=== PATIENT | male | born 1975 | race Caucasian/White ===

== ENCOUNTER 2018-01-15 01:40 | Inpatient (IN) | payer OTHER ==
[~2018-01-15] VITALS: Ht 177.8 cm; Wt 98.0 kg
--- NOTE | 2018-01-15 01:47 | NUR ---
to bed 9 [facility] paramedics c/o nonradiating midsternal chest pain x2 hrs. pt aaox4 no acute distress noted, resp even and unlabored. place pt on cardiac monitoring, continuous pox. er md at bedside to eval pt with orders received. will carry out orders. sl 20g to R hand chief construction inspector. family members at bedside.
--- NOTE | 2018-01-15 01:53 | NUR ---
blood drawn by community affairs manager.
[2018-01-15] MEDS ORDERED: ASPIRIN 325 MG TABLET ONE (02:00)
[2018-01-15] MEDS ORDERED: MORPHINE SULFATE INJ 2 MG/ML DISP.SYRIN IV ONE ×2 (02:00→02:30)
[2018-01-15] MEDS ORDERED: ASPIRIN 325 MG TABLET PO ONE (02:00)
[2018-01-15] MEDS ORDERED: MORPHINE SULFATE INJ 4 MG/ML DISP.SYRIN ONE ×2 (02:00→02:31)
--- NOTE | 2018-01-15 02:03 | NUR ---
pt medicated by rn per er md order.
[2018-01-15 02:04] LABS: BASOPHILS # (AUTO) 0.1 /CMM (0.0-0.2); BASOPHILS % (AUTO) 0.4 % (0.0-2.0); EOSINOPHILS % (AUTO) 2.7 % (0.0-6.0); HEMATOCRIT 44 % (39-51); HEMOGLOBIN 15.1 g/dL (13.5-17.5); LYMPHOCYTES # (AUTO) 2.9 /CMM (0.8-4.8); LYMPHOCYTES % (AUTO) 20.2 % (20.0-44.0); MEAN CORPUSCULAR HGB CONC 34 g/dl (31.0-36.0); MEAN CORPUSCULAR VOLUME 85 fL (80-96); MONOCYTES # (AUTO) 0.9 /CMM (0.1-1.30); NEUTROPHILS # (AUTO) 10.3 /CMM (1.8-8.9); NEUTROPHILS % (AUTO) 70.7 % (43.0-81.0); PLATELET COUNT (AUTO) 232 /CMM (150-450); RDW COEFFICIENT OF VARIATION 14.5 (11.5-15.0); RED BLOOD CELL COUNT(AUTO) 5.14 MIL/uL (4.5-6.0); WHITE BLOOD COUNT (AUTO) 14.6 K/uL (4.3-11.0)
[2018-01-15 02:16] LABS: CARBON DIOXIDE 23 mmol/L (21-32); CHLORIDE 109 mmol/L (98-107); CREATININE 0.8 mg/dL (0.6-1.3); GLUCOSE 169 mg/dL (74-106); SODIUM SERUM 142 mmol/L (136-145); UREA NITROGEN, BLOOD 16 mg/dL (7-18)
[2018-01-15 02:19] LABS: D-DIMER 0.26 mg/L(FEU (0.17-0.50); INR 0.95 (0.87-1.13)
[2018-01-15 02:28] LABS: B-TYPE NATRIURETIC PEPTIDE 13 PG/ML (0-125)
[2018-01-15 02:29] LABS: TROPONIN I < 0.017 ng/mL (0.00-0.056)
--- NOTE | 2018-01-15 03:06 | NUR ---
spoke to ruffin clinical case manager ok, info provided as requested.
--- NOTE | 2018-01-15 03:13 | NUR ---
pt resting quietly, no acute distress noted, resp even and unlabored. call ligh within reach. pt family members at bedside. will continue to monitor pt closely.
--- NOTE | 2018-01-15 03:43 | NUR ---
er md spoke to pt regarding hospital admission. will call for report when bed is available.
--- NOTE | 2018-01-15 03:45 | NUR ---
er md spoke to dr. gilliam regarding pt admission with admission orders received.
[2018-01-15] MEDS ORDERED: KETOROLAC TROMETHAMINE INJ 30 MG/ML VIAL ONE (03:52)
[2018-01-15] MEDS ORDERED: KETOROLAC TROMETHAMINE INJ 30 MG/ML VIAL IV ONE (04:00)
--- NOTE | 2018-01-15 04:45 | NUR ---
FIRER BOILER NOTE: RECEIVED PATIENT FROM ER, NO ACUTE DISTRESS NOTED. BREATHING EVEN AND UNLABORED, NO SOB NOTED. IV TO RIGHT HAND IN PLACE. ORIENTED PATIENT TO ROOM AND USE OF CALL LIGHT. AWAITING FOR ADMIT ORDERS. BED LOCKED AND IN LOWEST POSITION, CALL LIGHT IN REACH. WILL CONTINUE TO MONITOR.
[2018-01-15 05:00] VITALS: BP 128/73
[2018-01-15] MEDS ORDERED: INSULIN REGULAR, HUMAN 100 UNIT/ML 3 ML VIAL SQ PRN (05:30)
[2018-01-15] MEDS ORDERED: DEXTROSE 50%-WATER 50 ML DISP.SYRIN IV PRN (05:30)
[2018-01-15] MEDS ORDERED: ACETAMINOPHEN 325 MG TABLET PO PRN (05:30)
[2018-01-15] MEDS: BLOOD SUGAR DIAGNOSTIC 1 EACH STRIP IN SCH ×2 (06:33→11:43)
--- NOTE | 2018-01-15 06:45 | NUR ---
MANUFACTURING MANAGER NOTE: PATIENT RESTING IN BED, NO ACUTE DISTRESS NOTED. BREATHING EVEN AND UNLABORED, NO SOB NOTED. IV TO RIGHT HAND IN PLACE. PATIENT BLOOD SUGAR LEVEL 134MG/DL, NO INSULIN GIVEN, PATIENT NPO FOR NOW. NO S/S OF HYPER/HYPOGLYCEMIA NOTED. TELE READING SINUS MANASA TO SR 50-65. BED LOCKED AND IN LOWEST POSITION, CALL LIGHT IN REACH. WILL ENDORSE TO DAY NURSE TO CONTINUE WITH PLAN OF CARE.
--- NOTE | 2018-01-15 07:29 | NUR ---
REPORT RECEIVED AT THE BEDSIDE. PATIENT IS RESTING SLEEPING COMFORTABLY IN BED. NO SOB OR DISTRESS NOTED AT THIS TIME. PATIENT DOES NOT APPEAR TO BE IN PAIN, NO FACIAL GRIMACE NOTED. HEART RATE SR IN THE 60S. BED IN A LOW POSITION, CALL LIGHT WITHIN PATIENT REACH, WILL MONITOR.
[2018-01-15] MEDS ORDERED: ENAL5TAB PO (07:44)
[2018-01-15 08:00] VITALS: BP 128/73
[2018-01-15 08:04] LABS: BASOPHILS # (AUTO) 0.1 /CMM (0.0-0.2); BASOPHILS % (AUTO) 0.4 % (0.0-2.0); EOSINOPHILS % (AUTO) 1.8 % (0.0-6.0); HEMATOCRIT 45 % (39-51); LYMPHOCYTES # (AUTO) 2.4 /CMM (0.8-4.8); MEAN CORPUSCULAR HGB CONC 34 g/dl (31.0-36.0); MEAN CORPUSCULAR VOLUME 87 fL (80-96); MONOCYTES # (AUTO) 0.7 /CMM (0.1-1.30); MONOCYTES % (AUTO) 4.9 % (2.0-12.0); NEUTROPHILS # (AUTO) 10.7 /CMM (1.8-8.9); NEUTROPHILS % (AUTO) 75.9 % (43.0-81.0); PLATELET COUNT (AUTO) 210 /CMM (150-450); RDW COEFFICIENT OF VARIATION 14.2 (11.5-15.0); RED BLOOD CELL COUNT(AUTO) 5.15 MIL/uL (4.5-6.0); WHITE BLOOD COUNT (AUTO) 14.1 K/uL (4.3-11.0)
[2018-01-15 08:20] LABS: CALCIUM, SERUM 8.3 mg/dL (8.5-10.1); CREATININE 0.8 mg/dL (0.6-1.3)
[2018-01-15 08:24] LABS: POTASSIUM 3.9 mmol/L (3.5-5.1)
--- NOTE | 2018-01-15 08:56 | NUR ---
DR MEDEIROS ON FLOOR. GAVE VERBAL ORDER FOR MORPHINE 2MG ONE TIME NOW. STATES TO HAVE DR GUZMAN TO LOOK AT HIS MED ORDERS FOR PAIN MANAGEMENT. MED ORDERED WILL ADMIN.
[2018-01-15] MEDS ORDERED: ASPIRIN 81 MG TAB.CHEW PO SCH ×2 (09:00)
[2018-01-15] MEDS ORDERED: ATORVASTATIN 10 MG TABLET PO SCH (09:00)
[2018-01-15] MEDS ORDERED: PANTOPRAZOLE 40 MG TABLET.DR PO SCH (09:00)
[2018-01-15] MEDS ORDERED: CARVEDILOL 6.25 MG TABLET PO SCH (09:00)
[2018-01-15] MEDS ORDERED: MORPHINE SULFATE INJ 4 MG/ML DISP.SYRIN IV STA (09:10)
--- NOTE | 2018-01-15 10:27 | NUR ---
CALLED PHARMACY. WAITING FOR NS WITH [facility]. STATE THEY WILL SEND THE IV FLUIDS WHEN MIXED.
[2018-01-15] MEDS ORDERED: KETOROLAC TROMETHAMINE INJ 30 MG/ML VIAL IM PRN (11:00)
--- NOTE | 2018-01-15 11:07 | NUR ---
DR GUZMAN ON FLOOR. INFORMED MD THAT THERE IS A POSSIBILITY THAT THE CT ANGIOGRAM MAY NOT BE ABLE TO BE COMPLETED TODAY. STATES THAT IT NEEDS TO BE DONE SOON POSSIBLE AND TO CALL HIM IF THE TEST WILL NOT BE DONE TODAY. NURSING MANAGER OF PROCUREMENT CALLED AND INFORMED OF CONCERN. STATES SHE WILL ATTEMPT TO FIND SOMEONE TO COMPLETE THE TEST AND WILL ADVISE.
[2018-01-15 11:52] LABS: ALBUMIN 3.5 g/dL (3.4-5.0); BILIRUBIN,DIRECT 0.1 mg/dL (0.0-0.2); BILIRUBIN,TOTAL 0.3 mg/dL (0.2-1.0); TOTAL PROTEIN, SERUM 6.8 g/dL (6.4-8.2)
--- NOTE | 2018-01-15 12:41 | NUR ---
DR GUZMAN UNFORMED OF UNREMARKABLE GALLBLADDER US. STILL PENDING CT ANGIO.
[2018-01-15 16:00] VITALS: BP 153/84
--- NOTE | 2018-01-15 16:30 | NUR ---
PATIENT HAS LEFT AGAINST MEDICAL ADVICE. PATIENT SIGNED AMA PAPERWORK. THE RISK VERSUS BENEFITS OF STAYING VERSUS LEAVING WERE EXPLAINED TO THE PATIENT AND PATIENT STATES FULL UNDERSTANDING, BUT STILL WISHES TO LEAVE. DR GUZMAN AND DR MEDEIROS CALLED AND NOTIFIED OF PATIENT AMA. REFINER OPERATOR FROM [employer] CALLED AND STATES A FOLLOWUP CALL WILL BE MADE TO THE PATIENT ON WEDNESDAY AND AN APPOINTMENT FOR FOLLOW UP WILL BE MADE. PATIENT REFUSES TO HAVE A BOILER INSTALLER APPOINTMENT MADE AT THIS TIME; STATES HE WILL FOLLOWUP WITH THE REFINER OPERATOR. IV REMOVED AND PRESSURE APPLIED, NO BLEEDING NOTED AT THE SITE. PATIENT LEFT BEFORE CT ANGIO COULD BE PREFORMED. PATIENT LEFT IN STABLE CONDITION, AMBULATORY. LEFT WITH VIA PRIVATE CAR TO HOME. NO SOB OR DISTRESS, DENIES CHEST OR GENERALIZED PAIN.
== END 2018-01-15 16:27 | disposition left against medical advice (07) | DRG 203 ==
LOC: ER 01:42 → TELE 03:55 → MED 10:03
PROVIDERS: ADMIT Internal Medicine; ATTEND Internal Medicine
DX: R07.89 Other chest pain (principal); I10 Essential (primary) hypertension; E11.9 Type 2 diabetes mellitus without complications; F41.9 Anxiety disorder, unspecified; D72.829 Elevated white blood cell count, unspecified; F17.210 Nicotine dependence, cigarettes, uncomplicated; G47.00 Insomnia, unspecified; Z79.84 Long term (current) use of oral hypoglycemic drugs
CPT/HCPCS: 36415; 71045-TC; 76705-TC; 80048-TC; 80061-TC; 80076-TC; 82962-TC; 83880; 84484-TC; 85025-TC; 85378-TC; 85730-TC; 87081-TC; 93307-TC; A4606; J1815; J1885; J2270; J3480; J3490; Z7610